=== PATIENT | male | born 1990 | race Caucasian/White ===

== ENCOUNTER 2019-01-10 13:52 | Emergency (ER) | payer MEDICAID ==
[~2019-01-10] VITALS: Ht 172.7 cm; Wt 73.0 kg
[2019-01-10] MEDS ORDERED: LIDOCAINE HCL/EPINEPHRINE 1%-EPI 1:100,000 20 ML VIAL INFIL ONE (14:30)
[2019-01-10] MEDS ORDERED: TETANUS, DIPHTHERIA, PERTUSSIS VAC/PF 0.5ML (>7YR OLD) IM ONE (14:30)
[2019-01-10] MEDS ORDERED: LIDOCAINE HCL 1% 20ML VIAL (Pyxis) INJ INFIL ONE (15:45)
[2019-01-10] MEDS ORDERED: ACETAMINOPHEN 325MG TABLET PO ONE (16:30)
[2019-01-10 16:45] VITALS: BP 122/89
== END 2019-01-10 16:53 | disposition home or self-care (01) ==
LOC: ER 13:52
DX: S61.212A Laceration without foreign body of right middle finger without damage to nail, initial encounter (principal); E03.9 Hypothyroidism, unspecified; Z88.1 Allergy status to other antibiotic agents; W23.0XXA Caught, crushed, jammed, or pinched between moving objects, initial encounter; Y93.39 Activity, other involving climbing, rappelling and jumping off; Y92.89 Other specified places as the place of occurrence of the external cause; Y99.8 Other external cause status
CPT/HCPCS: 12002; 90471; 90715; 99283; A4217; J3490

== ENCOUNTER 2019-01-11 18:28 | Emergency (ER) | payer MEDICAID | END 2019-01-11 19:41 | disposition left against medical advice (07) | LOC: ER 18:28 | DX: Z53.21 Procedure and treatment not carried out due to patient leaving prior to being seen by health care provider (principal) ==